=== PATIENT | male | born 1950 | race Caucasian/White ===

== ENCOUNTER 2016-07-03 08:17 | Emergency (ER) | payer MEDICARE, BC ==
[~2016-07-03 08:17] MED LIST: 1-ME1LIQ PO; AMIODARONE HCL 150 MG/3 ML VIAL IV ONE; ASPI81CH37 CHEW; ATROPINE SULFATE 1 MG/10 ML SYRINGE IV ONE; CHOL20005 PO; CILO100T PO; COMMODE 3:1; EPINEPHrine HCL (1:10,000) 1 MG/10 ML SYRINGE IV ONE; FURO1TAB62 PO; ISOS30 PO; LEVEMIR SQ; LOFI160T PO; LOSA50TA PO; METO100T9 PO; METO50TA11 PO; NOVOLOGP2 SQ; PLAV75TA29 PO; ROSU20 PO; SODIUM BICARBONATE 8.4% INJ 50 MEQ/50 ML SYR IV ONE; THERM PO; VITATAB11 PO; WALKER ROLLING; WHEELCHAIR RENTAL RA
[2016-07-03] MEDS ORDERED: EPINEPHrine 2 MG/D5W 250 ML IV ONE ×2 (08:30)
--- NOTE | 2016-07-03 08:40 | PD ---
Physical Exam Narrative I was asked by Dr. Delvalle to help him with the cardiopulmonary arrest patient. Data Data Orders Epinephrine (1:1000) Inj (Adrenalin (1:1 (07/03/16 08:30) MDM Supervised Visit with CAIN: No Procedures Procedure Narrative CENTRAL VENOUS LINE: The site was prepped with Betadine and sterilely draped. It was infiltrated with 1% lidocaine plain. The deep vein was cannulated using normal Seldinger technique. A triple lumen central line was placed in the right femoral vein site and secured with simple interrupted suture. The site was sterilely dressed. The patient tolerated the procedure well. Ernst Chauhan MD Jul 03, 2016 08:40
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
[2016-07-03] MEDS ORDERED: EPINEPHrine (1:1000) INJ 2 MG in DEXTROSE 5% IN WATER INJ 248 ML IV SCH ×2 (11:00)
== END 2016-07-03 10:13 | disposition expired ==
LOC: PHED 08:17
DX: I46.9 Cardiac arrest, cause unspecified (principal); I10 Essential (primary) hypertension; E11.9 Type 2 diabetes mellitus without complications; E78.00 Pure hypercholesterolemia, unspecified; F17.200 Nicotine dependence, unspecified, uncomplicated; Z79.4 Long term (current) use of insulin; Z87.39 Personal history of other diseases of the musculoskeletal system and connective tissue; Z85.46 Personal history of malignant neoplasm of prostate; Z86.79 Personal history of other diseases of the circulatory system; Z87.448 Personal history of other diseases of urinary system; Z86.69 Personal history of other diseases of the nervous system and sense organs; Z87.09 Personal history of other diseases of the respiratory system
CPT/HCPCS: 36556; 92950; 99285; J0171; J0282; J0461